=== PATIENT | female | born 1985 | race African-American/Black ===

== ENCOUNTER 2018-11-16 08:15 | Day surgery (SDC) | payer MEDICARE, OTHER ==
[~2018-11-16] VITALS: Ht 160 cm; Wt 64.6 kg
[2018-11-16] MEDS ORDERED: RENA-VITE TABL0.8 M1 PO (08:53)
[2018-11-16] MEDS ORDERED: PLAQUENIL PO (08:53)
[2018-11-16] MEDS ORDERED: RENVELA0.8 GM ORAL (08:53)
[2018-11-16] MEDS ORDERED: SENSIPAR90 MG PO (08:53)
[2018-11-16 08:55] LABS: BASOPHILS % (AUTO) 1.2 % (0.0-2.0); EOSINOPHILS % (AUTO) 7.4 % (0.0-3.0); HEMATOCRIT 34.2 % (37.0-47.0); HEMOGLOBIN 10.8 G/DL (12.0-16.0); LYMPHOCYTES % (AUTO) 17.3 % (20.0-45.0); MEAN CORPUSCULAR VOLUME 98 FL (80-99); MONOCYTES % (AUTO) 6.3 % (1.0-10.0); NEUTROPHILS % (AUTO) 67.8 % (45.0-75.0); PLATELET COUNT 236 K/UL (150-450); RED CELL DISTRIBUTION WIDTH 16.4 % (11.6-14.8); WHITE BLOOD COUNT 5.6 K/UL (4.8-10.8)
[2018-11-16 08:56] VITALS: BP 136/87
[2018-11-16 09:02] LABS: ANION GAP 9 mmol/L (5-15); BLOOD UREA NITROGEN 48 mg/dL (7-18); CALCIUM 8.8 MG/DL (8.5-10.1); CARBON DIOXIDE 29 MMOL/L (21-32); CHLORIDE 103 MMOL/L (98-107); CREATININE 8.1 MG/DL (0.55-1.30); SODIUM 141 MMOL/L (136-145)
--- NOTE | 2018-11-16 11:50 | NUR ---
surgery cancelled. pt sent home with margret
--- NOTE | 2018-11-17 14:49 | Cardiology Report ---
APPROVED REPORT EKG Measurement Heart [id number] Normal sinus rhythm Normal ECG
== END 2018-11-16 11:45 | disposition home or self-care (01) ==
LOC: SUR 08:15
DX: Z53.9 Procedure and treatment not carried out, unspecified reason (principal)
CPT/HCPCS: 36415; 80048; 81025; 85025; 85610; 85730; 93005